=== PATIENT | female | born 2000 | race Caucasian/White ===

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

== ENCOUNTER 2019-04-06 17:30 | Inpatient (IN) | payer OTHER ==
[2019-04-07] MEDS ORDERED: LACTATED RINGER'S 1,000 ML IV (01:02)
[2019-04-07 01:26] LABS: ADD MAN DIFF? NO
[2019-04-07] MEDS ORDERED: OXYTOCIN 30 UNITS/LR 500 ML IV (01:30)
[2019-04-07] MEDS ORDERED: IBUPROFEN 600 MG TAB PO (01:30)
[2019-04-07] MEDS ORDERED: LIDOCAINE 1% (MPF) 30 ML INJ INJ (01:30)
[2019-04-07] MEDS ORDERED: METHYLERGONOVINE 0.2 MG INJ IM (01:30)
[2019-04-07] MEDS ORDERED: MISOPROSTOL 200 MCG TAB PR (01:30)
[2019-04-07] MEDS ORDERED: CARBOPROST 250 MCG INJ IM (01:30)
[2019-04-07 01:32] LABS: BASOPHILS % 0.5 % (0.0-2.0); EOSINOPHILS # 0.1 10^3/ul (0.0-0.5); HEMATOCRIT 36.9 % (37.0-47.0); LYMPHOCYTES # 2.3 10^3/ul (0.8-2.9); LYMPHOCYTES % 25.5 % (18.0-55.0); MEAN CORPUSCULAR HEMOGLOBIN 28.6 pg (29.0-33.0); MEAN CORPUSCULAR HGB CONC 32.5 g/dl (32.0-37.0); MEAN CORPUSCULAR VOLUME 88.1 fl (72.0-104.0); MEAN PLATELET VOLUME 10.7 fl (7.4-10.4); MONOCYTE # 0.7 10^3/ul (0.3-0.9); MONOCYTES % 8.2 % (0.0-13.0); NEUTROPHIL # 5.7 10^3/ul (1.6-7.5); NEUTROPHILS % 63.9 % (30.0-74.0); PLATELET COUNT 232 10^3/UL (140-415); RED BLOOD COUNT 4.19 10^6/ul (4.20-5.40); RED CELL DISTRIBUTION WIDTH 16.7 % (11.5-14.5)
[2019-04-07 01:32] LABS: WHITE BLOOD COUNT 8.9 10^3/ul (4.8-10.8)
[2019-04-07 01:52] LABS: INR 0.91; PROTIME 12.4 Sec (11.9-14.9)
[2019-04-07 01:53] LABS: PARTIAL THROMBOPLASTIN TIME 29.7 Sec (23.0-35.0)
[2019-04-07] MEDS: LACTATED RINGER'S 1,000 ML IV ×3 (02:40→20:30)
[2019-04-07 03:01] LABS: HEPATITIS B SURFACE ANTIGEN NEGATIVE (NEGATIVE)
[2019-04-07 15:38] LABS: RAPID PLASMA REAGIN NONREACTIVE (NR)
[2019-04-07] MEDS: OXYTOCIN 30 UNITS/LR 500 ML IV (16:08)
[2019-04-08] MEDS: LACTATED RINGER'S 1,000 ML IV (01:02)
[2019-04-08] MEDS: BUTORPHANOL 2 MG INJ IV (04:48)
[2019-04-08] MEDS ORDERED: DIPHENHYDRAMINE 50 MG INJ IV (06:00)
[2019-04-08] MEDS ORDERED: ONDANSETRON 4 MG INJ IV ×2 (06:00→09:30)
[2019-04-08] MEDS ORDERED: HYDROmorphONE 0.5 MG/0.5 ML SYG IV ×2 (06:00)
[2019-04-08] MEDS ORDERED: NALOXONE (0.4 MG/ML) INJ IV (06:00)
[2019-04-08] MEDS ORDERED: KETOROLAC 30 MG INJ IV (06:00)
[2019-04-08] MEDS: FENTAnyl 2MCG/ML-ROPIV 0.2% 100 ML BAG EPI (07:38)
[2019-04-08] MEDS ORDERED: MINERAL OIL LIGHT 10 ML VIAL TOP (08:00)
[2019-04-08] MEDS: OXYTOCIN 30 UNITS/LR 500 ML IV ×3 (08:57→13:28)
[2019-04-08] MEDS ORDERED: MISOPROSTOL 200 MCG TAB PR (09:30)
[2019-04-08] MEDS ORDERED: ZOLPIDEM 5 MG TAB PO (09:30)
[2019-04-08] MEDS: SENNA/DOCUSATE NA (8.6MG/50MG) TAB PO ×2 (09:30→21:23)
[2019-04-08] MEDS ORDERED: ACETAMINOPHEN 500 MG TAB PO (09:30)
[2019-04-08] MEDS ORDERED: METHYLERGONOVINE 0.2 MG INJ IM (09:30)
[2019-04-08] MEDS ORDERED: CARBOPROST 250 MCG INJ IM (09:30)
[2019-04-08] MEDS ORDERED: NACL 0.9% 3 ML SYG IV (09:30)
[2019-04-08] MEDS ORDERED: OXYTOCIN 30 UNITS/LR 500 ML IV (09:30)
[2019-04-08] MEDS ORDERED: DIPHENHYDRAMINE 25 MG CAP PO (09:30)
[2019-04-08] MEDS ORDERED: ONDANSETRON (ODT) 4 MG TAB ODT (09:30)
[2019-04-08] MEDS ORDERED: FAMOTIDINE 20 MG TAB PO (09:30)
[2019-04-08] MEDS: IBUPROFEN 600 MG TAB PO ×3 (12:00→23:54)
[2019-04-08] MEDS: LANOLIN HPA 1 PKT TOP (17:18)
[2019-04-08] MEDS: WITCH HAZEL/GLYCERIN PAD PR (17:18)
[2019-04-09] MEDS: IBUPROFEN 600 MG TAB PO ×3 (05:41→18:01)
[2019-04-09] MEDS: PRENATAL VITAMIN PO (08:37)
[2019-04-09] MEDS: SENNA/DOCUSATE NA (8.6MG/50MG) TAB PO ×2 (08:37→21:27)
[2019-04-09 09:30] LABS: HEMATOCRIT 34.7 % (37.0-47.0); HEMOGLOBIN 11.2 g/dl (12.0-16.0)
[2019-04-10] MEDS: IBUPROFEN 600 MG TAB PO ×3 (00:45→12:18)
[2019-04-10] MEDS ORDERED: VARICELLA VACCINE LIVE/PF 1,350 UNIT/0.5 ML ML SC* (09:00)
[2019-04-10] MEDS ORDERED: MEASLES,MUMPS,RUBELLA VACCINE INJ SC* (09:00)
[2019-04-10] MEDS ORDERED: DIPHTH/TET/ACEL PERTUSS (ADULT) 0.5 ML VIAL IM* (09:00)
[2019-04-10] MEDS: SENNA/DOCUSATE NA (8.6MG/50MG) TAB PO (09:27)
[2019-04-10] MEDS: PRENATAL VITAMIN PO (09:27)
== END 2019-04-10 14:46 | disposition home or self-care (01) | DRG 807 ==
LOC: OBT 17:30 → L-D 17:30 → PP1 04-08 13:34 → L-D 21:14
PROVIDERS: Obstetrics & Gynecology
PROC: 10E0XZZ Delivery of Products of Conception, External Approach (ICD-10-PCS; principal; 2019-04-08)
PROC: 0W8NXZZ Division of Female Perineum, External Approach (ICD-10-PCS; 2019-04-08)
PROC: 0HQ9XZZ Repair Perineum Skin, External Approach (ICD-10-PCS; 2019-04-08)
PROC: 0UQMXZZ Repair Vulva, External Approach (ICD-10-PCS; 2019-04-08)
DX: O36.8130 Decreased fetal movements, third trimester, not applicable or unspecified (principal); Z37.0 Single live birth; O70.0 First degree perineal laceration during delivery; Z3A.39 39 weeks gestation of pregnancy
CPT/HCPCS: 62322; 76815; 85014; 85018; 85025; 85610; 85730; 86592; 86850; 86900; 86901; 87340; 99464